=== PATIENT | male | born 1990 | race Two or more races ===

== ENCOUNTER 2023-06-18 11:41 | Emergency (ER) | payer OTHER, MEDICAID ==
[~2023-06-18] VITALS: Ht 162.6 cm; Wt 79.0 kg
[2023-06-18 13:10] VITALS: BP 152/97; PULSE 91; RESP 18; TEMP 97.1; O2SAT 97
[2023-06-18] MEDS ORDERED: NABU-72 PO (14:12)
== END 2023-06-18 14:21 | disposition home or self-care (01) ==
LOC: ER 11:41
DX: S82.891A Other fracture of right lower leg, initial encounter for closed fracture (principal); Z79.899 Other long term (current) drug therapy; X50.1XXA Overexertion from prolonged static or awkward postures, initial encounter; Y93.89 Activity, other specified; Y92.89 Other specified places as the place of occurrence of the external cause; Y99.8 Other external cause status
CPT/HCPCS: 73610

== ENCOUNTER 2023-12-26 20:59 | Emergency (ER) | payer MEDICAID, OTHER ==
[~2023-12-26] VITALS: Ht 162.6 cm; Wt 72.7 kg
[~2023-12-26 20:59] MED LIST: NABU-72 PO
[2023-12-26] MEDS: HYDROcodone-ACET 10/325MG TAB PO ONE (22:13)
[2023-12-26 22:46] VITALS: BP 147/95; PULSE 71; RESP 14; O2SAT 100
== END 2023-12-27 02:03 | disposition home or self-care (01) ==
LOC: ER 20:59
DX: S80.212A Abrasion, left knee, initial encounter (principal); S40.211A Abrasion of right shoulder, initial encounter; S30.810A Abrasion of lower back and pelvis, initial encounter; S00.31XA Abrasion of nose, initial encounter; S60.511A Abrasion of right hand, initial encounter; V29.99XA Rider (driver) (passenger) of other motorcycle injured in unspecified traffic accident, initial encounter; Y93.89 Activity, other specified; Y92.89 Other specified places as the place of occurrence of the external cause; Y99.8 Other external cause status
CPT/HCPCS: 70450; 71046; 72170; 73030; 73562; 73590

== ENCOUNTER 2024-01-27 13:12 | Emergency (ER) | payer MEDICAID, OTHER ==
[~2024-01-27] VITALS: Ht 162.6 cm; Wt 73.0 kg
[2024-01-27] MEDS: HYDROcodone-ACET 10/325MG TAB PO ONE (15:35)
[2024-01-27 16:55] LABS: Basophils # (auto) 0.1 10 ^3/uL (0-0.2); Basophils % (auto) 0.6 % (0.0-2.0); Eosinophils # (auto) 0 10 ^3/uL (0-0.8); Eosinophils % (auto) 0.2 % (0.0-7.0); Hematocrit 37.3 % (41.0-53.0); Lymphocytes # (auto) 1.7 10 ^3/uL (0.4-5.4); Lymphocytes % (auto) 15.8 % (10.0-50.0); Mean Corpuscular Hemoglobin 28.2 pg (28.0-32.0); Mean Corpuscular Hgb Conc. 34.9 g/dL (32.0-36.0); Mean Corpuscular Volume 80.6 fL (80.0-100.0); Monocytes # (auto) 0.7 10 ^3/uL (0-1.3); Monocytes % (auto) 6.8 % (0.0-12.0); Neutrophils # (auto) 8.4 10 ^3/uL (1.6-8.6); Neutrophils % (auto) 76.6 % (37.0-80.0); Nucleated Red Blood Cells % 0.1 %; Platelet Count (auto) 474 10^3/uL (140-450); Red Blood Cells 4.62 10^6/uL (4.5-5.90); Red Cell Distribution Width 16.3 % (11.8-14.3)
[2024-01-27 17:08] LABS: Chloride 106 mmol/L (98-107); Potassium 3.3 mmol/L (3.5-5.1); Sodium 137 mmol/L (136-145)
[2024-01-27 17:09] LABS: Anion Gap 9 (5-15); Calcium 10.3 mg/dL (8.7-10.4); Carbon Dioxide 22 mmol/L (20-30)
[2024-01-27 17:14] LABS: BUN/Creatinine Ratio 8.3 (10.0-20.0); Blood Urea Nitrogen 8 mg/dL (9-23); Glucose 100 mg/dL (74-106)
[2024-01-27] MEDS: AMPICILLIN & SULBACTAM SODIUM 3 GM in SODIUM CHL 0.9% 100 ML IV ONE (17:26)
[2024-01-27] MEDS: MORPHINE SULFATE 4 MG/ML SYR/VIAL IM ONE (17:27)
[2024-01-27 18:06] VITALS: BP 140/94; PULSE 68; RESP 18; TEMP 98.4; O2SAT 98
== END 2024-01-27 20:43 | disposition short-term general hospital (02) ==
LOC: ER 13:12
DX: S02.2XXA Fracture of nasal bones, initial encounter for closed fracture (principal); S02.85XA Fracture of orbit, unspecified, initial encounter for closed fracture; H50.6 Mechanical strabismus; Y04.2XXA Assault by strike against or bumped into by another person, initial encounter; Y93.89 Activity, other specified; Y92.89 Other specified places as the place of occurrence of the external cause; Y99.8 Other external cause status
CPT/HCPCS: 36415; 70450; 70486; 80048; 85025; 96365; 96372; 99285; J2270

== ENCOUNTER 2024-03-18 12:05 | Emergency (ER) | payer MEDICAID ==
[~2024-03-18] VITALS: Ht 162.6 cm; Wt 80.9 kg
[2024-03-18 12:19] VITALS: O2SAT 99
[2024-03-18] MEDS ORDERED: IBUPROFEN 800 MG TAB PO ONE (12:45)
[2024-03-18] MEDS ORDERED: cefTRIAXone SOD 1,000 MG VL IM ONE (12:45)
[2024-03-18 13:08] VITALS: BP 151/89; PULSE 83; RESP 16; TEMP 98.6
[2024-03-18] MEDS ORDERED: IBUP-1456 PO (13:22)
== END 2024-03-18 13:28 | disposition home or self-care (01) ==
LOC: ER 12:09
DX: S43.101A Unspecified dislocation of right acromioclavicular joint, initial encounter (principal); Z79.899 Other long term (current) drug therapy; Z79.1 Long term (current) use of non-steroidal anti-inflammatories (NSAID); V89.2XXA Person injured in unspecified motor-vehicle accident, traffic, initial encounter; Y93.89 Activity, other specified; Y92.89 Other specified places as the place of occurrence of the external cause; Y99.8 Other external cause status
CPT/HCPCS: 73030